=== PATIENT | female | born 1955 | race Caucasian/White ===

== ENCOUNTER 2020-08-24 18:55 | Emergency (ER) | payer MEDICARE, MEDICAID ==
[~2020-08-24] VITALS: Ht 149.9 cm; Wt 40.9 kg
[2020-08-24] MEDS ORDERED: glucagon, human recombinant 1mg kit IM ONE (19:35)
[2020-08-24] MEDS ORDERED: LORazepam 2 mg/ml vial IV ONE (19:35)
[2020-08-24] MEDS ORDERED: ketorolac tromethamine 15mg/ml inj. IM ONE (21:40)
[2020-08-24 22:00] VITALS: BP 128/82
[2020-08-25] MEDS ORDERED: nitroGLYCERIN 0.4mg SUBLingual tab SL ONE (07:00)
== END 2020-08-24 22:04 | disposition home or self-care (01) ==
LOC: ER 18:56
DX: Q39.9 Congenital malformation of esophagus, unspecified (principal); Z88.8 Allergy status to other drugs, medicaments and biological substances
CPT/HCPCS: 96372; 96374; 99284; J1610; J1885; J2060

== ENCOUNTER 2022-05-14 19:44 | Emergency (ER) | payer MEDICARE, MEDICAID ==
[~2022-05-14] VITALS: Ht 149.9 cm; Wt 49.5 kg
[2022-05-14 20:25] VITALS: BP 103/60
--- NOTE | 2022-05-14 21:06 | NUR ---
RT 4TH DIGIT SOAKING IN [facility] AND BETADINE JEANNA
[2022-05-14] MEDS ORDERED: CEPH-585 PO (21:08)
[2022-05-14] MEDS ORDERED: bacitracin 15gm ointment TP ONE (21:20)
[2022-05-14] MEDS ORDERED: ibuprofen tablet 400 MG TABLET PO ONE (21:20)
[2022-05-14] MEDS ORDERED: cephalexin 250mg capsule PO ONE (21:20)
== END 2022-05-14 21:41 | disposition home or self-care (01) ==
LOC: ER 19:45
DX: L03.011 Cellulitis of right finger (principal); F17.200 Nicotine dependence, unspecified, uncomplicated; Z88.5 Allergy status to narcotic agent
CPT/HCPCS: 99284

== ENCOUNTER 2022-05-16 20:00 | Emergency (ER) | payer MEDICARE, MEDICAID ==
[~2022-05-16] VITALS: Ht 149.9 cm; Wt 49.5 kg
[~2022-05-16 20:00] MED LIST: CEPH-585 PO
[2022-05-16] MEDS ORDERED: metoclopramide 5 mg/ml inj IV ONE (21:10)
[2022-05-16] MEDS ORDERED: glucagon, human recombinant 1mg kit IV ONE (21:10)
[2022-05-16 21:38] LABS: BASOPHILS # (AUTO) 0.1 X10'3 (0-0.2); EOSINOPHILS # (AUTO) 0.3 X10'3 (0-0.9); EOSINOPHILS % (AUTO) 3.6 % (0-6); HEMATOCRIT 26.9 % (35.0-45.0); HEMOGLOBIN 8.4 g/dl (12.0-16.0); LYMPHOCYTES # (AUTO) 2.7 X10'3 (1.1-4.8); LYMPHOCYTES % (AUTO) 32.3 % (21-51); MEAN CORPUSCULAR HGB CONC 31.2 g/dL (33.0-36.5); MEAN CORPUSCULAR VOLUME 70.4 FL (78-98); MEAN PLATELET VOLUME 6.9 FL (7.4-10.4); MONOCYTES # (AUTO) 0.6 X10'3 (0-0.9); MONOCYTES % (AUTO) 7.3 % (2-12); NEUTROPHILS # (AUTO) 4.6 X10'3 (1.8-7.7); NEUTROPHILS % (AUTO) 55.8 % (42-75); PLATELET COUNT 411 X10'3 (140-440); RED BLOOD COUNT 3.82 X10'6 (4.20-5.60); RED CELL DISTRIBUTION WIDTH 19.4 % (11.5-14.5); WHITE BLOOD COUNT 8.3 X10'3 (4.5-11.0)
[2022-05-16 21:47] LABS: APTT 23 SECONDS (22-32)
[2022-05-16 21:50] LABS: ALANINE AMINOTRANSFERASE 16 U/L (12-78); ALBUMIN 3.3 G/DL (3.4-5.0); ALBUMIN/GLOBULIN RATIO 0.8 (1.1-1.5); ALKALINE PHOSPHATASE 151 IU/L (46-116); ANION GAP 8 (8-16); ASPARTATE AMINO TRANSFERASE 14 U/L (10-37); BILIRUBIN,TOTAL 0.2 MG/DL (0.1-1.0); BLOOD UREA NITROGEN 20 MG/DL (7-18); CALCIUM 9.1 MG/DL (8.5-10.1); CHLORIDE 104 MMOL/L (99-107); CREATININE 0.87 MG/DL (0.40-0.90); GLUCOSE 108 MG/DL (70-104); POTASSIUM 4.7 MMOL/L (3.5-5.1); SODIUM 139 MMOL/L (135-145); TOTAL CARBON DIOXIDE 26.9 MMOL/L (24-32); TOTAL PROTEIN 7.4 G/DL (6.4-8.2); eGFR 66 ML/MIN
[2022-05-16] MEDS ORDERED: SUCR1ORA15 PO (22:00)
[2022-05-16 22:14] LABS: ANISOCYTOSIS 2+; MICROCYTOSIS 1+; PLATELET ESTIMATE NORMAL
[2022-05-16 22:15] LABS: ACANTHOCYTES FEW; ELLIPTOCYTES FEW; TEAR DROP CELLS FEW
[2022-05-16 22:25] VITALS: BP 167/68
== END 2022-05-16 22:26 | disposition home or self-care (01) ==
LOC: ER 20:03
DX: T18.128A Food in esophagus causing other injury, initial encounter (principal); Z88.5 Allergy status to narcotic agent; Z87.891 Personal history of nicotine dependence; X58.XXXA Exposure to other specified factors, initial encounter; Y93.89 Activity, other specified; Y92.89 Other specified places as the place of occurrence of the external cause; Y99.8 Other external cause status
CPT/HCPCS: 36415; 80053; 85008; 85025; 85610; 85730; 96374; 96375; 99284; J1610; J2765

== ENCOUNTER 2022-08-11 23:15 | Emergency (ER) | payer MEDICARE, MEDICAID ==
[~2022-08-11] VITALS: Ht 149.9 cm; Wt 46.4 kg
[~2022-08-11 23:15] MED LIST changes: +SUCR1ORA15 PO
[2022-08-11 23:47] LABS: BASOPHILS % (AUTO) 0.6 % (0-1); EOSINOPHILS # (AUTO) 0.1 X10'3 (0-0.9); EOSINOPHILS % (AUTO) 0.7 % (0-6); HEMATOCRIT 30.9 % (35.0-45.0); HEMOGLOBIN 9.5 g/dl (12.0-16.0); LYMPHOCYTES # (AUTO) 1.6 X10'3 (1.1-4.8); MEAN CORPUSCULAR HEMOGLOBIN 21.7 PG (27.0-31.0); MEAN CORPUSCULAR HGB CONC 30.8 g/dL (33.0-36.5); MEAN CORPUSCULAR VOLUME 70.3 FL (78-98); MEAN PLATELET VOLUME 6.7 FL (7.4-10.4); MONOCYTES # (AUTO) 0.7 X10'3 (0-0.9); MONOCYTES % (AUTO) 7.8 % (2-12); NEUTROPHILS # (AUTO) 6.2 X10'3 (1.8-7.7); NEUTROPHILS % (AUTO) 71.9 % (42-75); PLATELET COUNT 447 X10'3 (140-440); RED BLOOD COUNT 4.39 X10'6 (4.20-5.60); RED CELL DISTRIBUTION WIDTH 22.2 % (11.5-14.5); WHITE BLOOD COUNT 8.6 X10'3 (4.5-11.0)
[2022-08-12 00:03] LABS: ANISOCYTOSIS 3+; MICROCYTOSIS 1+; PLATELET ESTIMATE INCREASED
[2022-08-12 00:04] LABS: ALANINE AMINOTRANSFERASE 19 U/L (12-78); ALBUMIN 3.5 G/DL (3.4-5.0); ALBUMIN/GLOBULIN RATIO 0.9 (1.1-1.5); ALKALINE PHOSPHATASE 109 IU/L (46-116); ANION GAP 10 (8-16); ASPARTATE AMINO TRANSFERASE 14 U/L (10-37); BILIRUBIN,TOTAL 0.1 MG/DL (0.1-1.0); BLOOD UREA NITROGEN 22 MG/DL (7-18); BUN/CREATININE RATIO 32.4 (10.0-20.0); CALCIUM 9.2 MG/DL (8.5-10.1); CHLORIDE 102 MMOL/L (99-107); CREATININE 0.68 MG/DL (0.40-0.90); GLUCOSE 147 MG/DL (70-104); POTASSIUM 4.2 MMOL/L (3.5-5.1); SODIUM 139 MMOL/L (135-145); TOTAL CARBON DIOXIDE 27.3 MMOL/L (24-32); TOTAL PROTEIN 7.5 G/DL (6.4-8.2); eGFR 87 ML/MIN
[2022-08-12 00:10] LABS: ELLIPTOCYTES FEW
[2022-08-12 00:11] LABS: ACANTHOCYTES FEW
[2022-08-12] MEDS ORDERED: pantoprazole 40 MG vial IV ONE (01:15)
[2022-08-12] MEDS ORDERED: ondansetron/PF 4mg/2ml inj IV ONE ×3 (01:15→07:45)
[2022-08-12] MEDS ORDERED: sucralfate 1 gm tablet PO ONE (01:15)
[2022-08-12] MEDS ORDERED: iohexol 300mg/ml 100ml inj. ONE (01:42)
[2022-08-12] MEDS ORDERED: pantoprazole 40MG/NS 100ML BAG 100 ML IV ONE (01:50)
[2022-08-12] MEDS: morphine 2 MG/ML inj. syringe IV PRN ×4 (02:20→07:59)
--- NOTE | 2022-08-12 08:13 | NUR ---
Family at bedside,we will monitor.
[2022-08-12] MEDS ORDERED: ONDA4TAB12 PO (08:36)
[2022-08-12] MEDS ORDERED: TRAM50TA2 PO (08:36)
[2022-08-12] MEDS ORDERED: OMEP40CA21 PO (08:36)
[2022-08-12] MEDS ORDERED: SUCR1TAB PO (08:36)
[2022-08-12 08:44] VITALS: BP 155/87
== END 2022-08-12 08:51 | disposition home or self-care (01) ==
LOC: ER 23:16
DX: R07.89 Other chest pain (principal); I10 Essential (primary) hypertension; J44.9 Chronic obstructive pulmonary disease, unspecified; R11.10 Vomiting, unspecified; Z87.891 Personal history of nicotine dependence; Z88.5 Allergy status to narcotic agent
CPT/HCPCS: 36415; 71045; 71260; 80053; 83880; 84484; 85008; 85025; 93005; 96365; 96375; 96376; 99285; C9113; J2270; J2405; J3490; Q9967

== ENCOUNTER → 2023-04-15 | Emergency (ER) | payer BC, MEDICAID ==
[~2023-04-15] VITALS: Ht 149.9 cm; Wt 46.8 kg
[~2023-04-15] MED LIST changes: +CEFD300C3 PO; +ONDA4TAB12 PO; +SUCR1TAB PO
[2023-04-15 20:26] VITALS: BP 117/75; PULSE 98; RESP 15; TEMP 98.1; O2SAT 99
== END | disposition home or self-care (01) ==
LOC: ER 18:43
DX: J20.9 Acute bronchitis, unspecified (principal); I10 Essential (primary) hypertension; J44.9 Chronic obstructive pulmonary disease, unspecified; Z88.5 Allergy status to narcotic agent; Z79.899 Other long term (current) drug therapy
CPT/HCPCS: 99283

== ENCOUNTER 2024-04-06 15:48 | Emergency (ER) | payer MEDICARE, MEDICAID ==
[~2024-04-06] VITALS: Ht 259.1 cm; Wt 54.0 kg
[~2024-04-06 15:48] MED LIST changes: -CEFD300C3 PO; -CEPH-585 PO; +ONDA-243 PO; -ONDA4TAB12 PO
[2024-04-06 16:41] LABS: BASOPHILS # (AUTO) 0.1 X10'3 (0-0.2); BASOPHILS % (AUTO) 0.7 % (0-1); EOSINOPHILS % (AUTO) 11.6 % (0-6); HEMATOCRIT 33.8 % (35.0-45.0); HEMOGLOBIN 10.9 g/dl (12.0-16.0); LYMPHOCYTES # (AUTO) 2.7 X10'3 (1.1-4.8); LYMPHOCYTES % (AUTO) 31.2 % (21-51); MEAN CORPUSCULAR HEMOGLOBIN 26.3 PG (27.0-31.0); MEAN CORPUSCULAR HGB CONC 32.2 g/dL (33.0-36.5); MEAN CORPUSCULAR VOLUME 81.7 FL (78-98); MONOCYTES # (AUTO) 0.7 X10'3 (0-0.9); MONOCYTES % (AUTO) 8.7 % (2-12); NEUTROPHILS # (AUTO) 4.1 X10'3 (1.8-7.7); NEUTROPHILS % (AUTO) 47.8 % (42-75); PLATELET COUNT 387 X10'3 (140-440); RED BLOOD COUNT 4.14 X10'6 (4.20-5.60); RED CELL DISTRIBUTION WIDTH 17.2 % (11.5-14.5); WHITE BLOOD COUNT 8.5 X10'3 (4.5-11.0)
[2024-04-06 16:50] VITALS: BP 122/89; PULSE 75; RESP 18; TEMP 99.3; O2SAT 99
[2024-04-06 16:57] LABS: ALANINE AMINOTRANSFERASE 16 U/L (12-78); ALBUMIN 3.4 G/DL (3.4-5.0); ALBUMIN/GLOBULIN RATIO 0.7 (1.1-1.5); ALKALINE PHOSPHATASE 162 IU/L (46-116); ANION GAP 4 (8-16); ASPARTATE AMINO TRANSFERASE 15 U/L (10-37); BILIRUBIN,TOTAL 0.2 MG/DL (0.1-1.0); BLOOD UREA NITROGEN 13 MG/DL (7-18); BUN/CREATININE RATIO 15.5 (10.0-20.0); CALCIUM 8.9 MG/DL (8.5-10.1); CHLORIDE 107 MMOL/L (99-107); CREATININE 0.84 MG/DL (0.40-0.90); GLUCOSE 96 MG/DL (70-104); POTASSIUM 5.3 MMOL/L (3.5-5.1); SODIUM 141 MMOL/L (135-145); TOTAL CARBON DIOXIDE 29.8 MMOL/L (24-32); TOTAL PROTEIN 8.1 G/DL (6.4-8.2); eCRCL 56 ML/MIN; eGFR 68 ML/MIN
== END 2024-04-06 16:50 | disposition home or self-care (01) ==
LOC: ER 15:50
DX: R05.9 Cough, unspecified (principal); J44.9 Chronic obstructive pulmonary disease, unspecified; I10 Essential (primary) hypertension; Z88.8 Allergy status to other drugs, medicaments and biological substances; Z79.899 Other long term (current) drug therapy; Z98.890 Other specified postprocedural states
CPT/HCPCS: 36415; 71045; 80053; 85025; 99284